=== PATIENT | female | born 1970 | race Caucasian/White ===

== ENCOUNTER 2018-04-12 09:49 | Inpatient (IN) | payer OTHER ==
[~2018-04-12] VITALS: Ht 167.6 cm; Wt 88.5 kg
[2018-04-12] MEDS ORDERED: ELAVIL PO (10:43)
[2018-04-12] MEDS ORDERED: LYRICA150 MG PO (10:43)
[2018-04-12] MEDS ORDERED: COZAAR50 MG PO (10:44)
[2018-04-12] MEDS ORDERED: METOPROLOL ER-1 EACH PO (10:44)
[2018-04-12] MEDS ORDERED: METFORMIN HCL1000 M1 PO (10:45)
[2018-04-12] MEDS ORDERED: ATORVASTATIN CA20 MG PO (10:45)
[2018-04-12] MEDS ORDERED: SYNTHROID88 MCG PO (10:45)
[2018-04-20] MEDS ORDERED: OXYC1TAB9 PO (07:11)
[2018-04-20] MEDS ORDERED: CIPRO500 MG PO (07:11)
== END 2018-04-20 08:38 | disposition home or self-care (01) | DRG 743 ==
LOC: OB/GYN 04-18 06:54 → O/R 04-18 06:54 → SURG 04-18 08:45 → OB/GYN 04-18 11:15 → SURG 04-18 11:15 → OB/GYN 04-18 12:22
PROVIDERS: Obstetrics & Gynecology Gynecology
PROC: 0UT70ZZ Resection of Bilateral Fallopian Tubes, Open Approach (ICD-10-PCS; 2018-04-18)
PROC: 0UT00ZZ Resection of Right Ovary, Open Approach (ICD-10-PCS; 2018-04-18)
PROC: 0UBM0ZZ Excision of Vulva, Open Approach (ICD-10-PCS; 2018-04-18)
PROC: 0UT90ZZ Resection of Uterus, Open Approach (ICD-10-PCS; principal; 2018-04-18 08:45)
DX: D25.1 Intramural leiomyoma of uterus (principal); N84.0 Polyp of corpus uteri; N80.1 Endometriosis of ovary; N83.01 Follicular cyst of right ovary; N83.8 Other noninflammatory disorders of ovary, fallopian tube and broad ligament; N84.3 Polyp of vulva; E11.9 Type 2 diabetes mellitus without complications